=== PATIENT | female | born 1980 | race Caucasian/White ===

== ENCOUNTER 2016-09-30 00:29 | Inpatient (IN) | payer BC ==
[2016-09-30] MEDS ORDERED: Sodium Chloride 0.9% 10 ML Syringe FLUSH PRN (00:57)
[2016-09-30] MEDS ORDERED: Lidocaine 1% 50 ML MDV INJECT ONE (00:57)
[2016-09-30] MEDS ORDERED: Lactated Ringers 1,000 ML IV SCH (01:00)
[2016-09-30] MEDS ORDERED: Oxytocin/Lactated Ringers 10 UNIT/1,000 ML BAG IV SCH (01:00)
[2016-09-30] MEDS ORDERED: Citric Acid/Sodium Citrate Solution 30 ML Cup ONE (02:10)
[2016-09-30] MEDS ORDERED: Metoclopramide 10 MG/2 ML SDV ONE (02:10)
[2016-09-30] MEDS ORDERED: Bupivacaine 0.5% 30 ML SDV ONE (02:12)
[2016-09-30] MEDS ORDERED: Morphine PF 10 MG/10 ML SDV ONE (02:25)
[2016-09-30] MEDS ORDERED: Propofol 200 MG/20 ML SDV ONE (02:31)
[2016-09-30] MEDS ORDERED: Dexamethasone 4 MG/ML SDV ONE (02:32)
[2016-09-30] MEDS ORDERED: Ondansetron 4 MG/2 ML SDV ONE (02:32)
[2016-09-30] MEDS ORDERED: Succinylcholine/Normal Saline 100 MG/5 ML Syringe ONE (02:32)
[2016-09-30] MEDS ORDERED: Lidocaine 1% 2 ML ONE (02:32)
[2016-09-30] MEDS ORDERED: fentaNYL 250 MCG/5 ML SDV ONE (02:32)
[2016-09-30] MEDS ORDERED: Citric Acid/Sodium Citrate Solution 30 ML Cup PO ONE (02:38)
[2016-09-30] MEDS ORDERED: Metoclopramide 10 MG/2 ML SDV IVPUSH ONE (02:38)
[2016-09-30] MEDS ORDERED: ceFAZolin 2 GM in Premix Bag 1 BAG IV ONE (02:38)
[2016-09-30] MEDS ORDERED: Midazolam 1 MG/ML 2 ML SDV ONE (02:50)
[2016-09-30] MEDS ORDERED: ceFAZolin 1 GM Vial ONE (03:13)
[2016-09-30] MEDS ORDERED: Phenylephrine/Normal Saline 100 MCG/ML 10 ML Syringe ONE (03:13)
--- NOTE | 2016-09-30 03:35 | PCM.POSTAN ---
POST ANESTHESIA ASSESSMENT - MENTAL STATUS Mental Status: alert, oriented - VITAL SIGNS Pulse Rate: 92 SaO2: 95 Resp Rate: 10 Blood Pressure: 109/69 Temperature: 36.1 C - RESPIRATORY Respiratory Status: respiratory rate WNL, airway patent, O2 saturation stable - CARDIOVASCULAR CV Status: pulse rate WNL, blood pressure stable - GASTROINTESTINAL GI Status: no symptoms - PAIN Pain Score: 0 - POST OP HYDRATION Hydration Status: adequate & stable
[2016-09-30] MEDS ORDERED: diphenhydrAMINE 50 MG/ML SDV IVPUSH PRN ×2 (03:36→04:17)
[2016-09-30] MEDS ORDERED: Meperidine PF 50 MG/ML Syringe IVPUSH PRN (03:36)
[2016-09-30] MEDS ORDERED: fentaNYL 100 MCG/2 ML SDV IVPUSH PRN (03:36)
[2016-09-30] MEDS ORDERED: Ondansetron 4 MG/2 ML SDV IVPUSH PRN (03:36)
--- NOTE | 2016-09-30 03:38 | PCM.PREANE ---
Preanesthetic Assessment - Procedure Proposed Procedure: Stat CSection - Anesthesia/Transfusion/Family Hx Anesthesia History: Prior Anesthesia Without Reaction Type of Anesthesia Reaction: Unknown Family History of Anesthesia Reaction: No Transfusion History: Unknown Type of Transfusion Reactions: Reports: Unknown Intubation History: Unknown - Review of Systems General: No Symptoms Pulmonary: No Symptoms Cardiovascular: No Symptoms Gastrointestinal: No symptoms Neurological: No Symptoms Other: Reports: None - Physical Assessment NPO Status Date: 09/29/16 NPO Status Time: 17:00 Pulse: 92 O2 Sat by Pulse Oximetry: 95 Respiratory Rate: 10 Blood Pressure: 109/69 Temperature: 36.1 C Vital Signs: Last Vital Signs Temp 36.1 C 09/30/16 03:35 Pulse 92 09/30/16 03:35 Resp 10 L 09/30/16 03:35 BP 109/69 09/30/16 03:35 Pulse Ox 95 09/30/16 03:35 Height: 1.65 m Weight: 82.282 kg ASA Class: 2E Mental Status: Alert & Oriented x3 Airway Class: Mallampati = 1 Dentition: Reports: Normal Dentition Thyro-Mental Finger Breadths: 3 Mouth Opening Finger Breadths: 3 ROM/Head Extension: Full Lungs: Clear to auscultation, Normal respiratory effort Cardiovascular: Regular Rate, Regular Rhythm - Lab Values: Laboratory Last Values WBC 10.13 K/mm3 (3.98-10.04) H 09/30/16 00:47 RBC 3.91 M/mm3 (3.98-5.22) L 09/30/16 00:47 Hgb 12.0 gm/L (11.2-15.7) 09/30/16 00:47 Hct 35.7 % (34.1-44.9) 09/30/16 00:47 MCV 91.3 fl (79.4-94.8) 09/30/16 00:47 MCH 30.7 pg (25.6-32.2) 09/30/16 00:47 MCHC 33.6 g/dl (32.2-35.5) 09/30/16 00:47 RDW Std Deviation 44.0 fL (36.4-46.3) 09/30/16 00:47 Plt Count 230 K/mm3 (182-369) 09/30/16 00:47 MPV 11.6 fl (9.4-12.3) 09/30/16 00:47 Blood Type O POSITIVE 09/30/16 00:43 Gel Antibody Screen Negative 09/30/16 00:43 - Allergies Allergies/Adverse Reactions: Allergies Allergy/AdvReac Type Severity Reaction Status Date / Time No Known Allergies Allergy Verified 09/30/16 01:00 - Blood Blood Available: No Product(s) Available: None - Acknowledgements Anesthesia Type Planned: General Anesthesia Pt an Appropriate Candidate for the Planned Anesthesia: Yes Alternatives and Risks of Anesthesia Discussed w Pt/Guardian: Yes Pt/Guardian Understands and Agrees with Anesthesia Plan: Yes PreAnesthesia Questionnaire - Past Health History Medical/Surgical History: Denies Medical/Surgical History - SUBSTANCE USE Smoking Status *Q: Never Smoker Second Hand Smoke Exposure: No Days Per Week of Alcohol Use: 0 Recreational Drug Use History: No - HOME MEDS Home Medications: Home Meds Vits #90/Iron Fum/FA [ Formula] 1 each PO DAILY 09/19/14 [ History] - CURRENT (IN HOUSE) MEDS Current Meds: Current Medications Lactated Ringer's (Ringers, Lactated) 1,000 mls @ 100 mls/hr IV ASDIRECTED [facility] Last Admin: 09/30/16 01:16 Dose: 100 mls/hr Oxytocin/Lactated Ringer's (Pitocin In Lr 10 Units/1,000 Ml) 10 unit in 1,000 mls @ 500 mls/hr IV ASDIRECTED [facility] Sodium Chloride (Saline Flush) 10 ml FLUSH ASDIRECTED PRN PRN Reason: Keep Vein Open Discontinued Medications Bupivacaine HCl (Marcaine 0.5%) Confirm Administered Dose 30 ml .ROUTE .STK-MED ONE Stop: 09/30/16 02:13 Cefazolin Sodium (Ancef) Confirm Administered Dose 2 gm .ROUTE .STK-MED ONE Stop: 09/30/16 03:14 Citric Acid/Sodium Citrate (Bicitra Solution) Confirm Administered Dose 30 ml .ROUTE .STK-MED ONE Stop: 09/30/16 02:11 Last Admin: 09/30/16 02:47 Dose: Not Given Citric Acid/Sodium Citrate (Bicitra Solution) 30 ml PO ONETIME ONE Stop: 09/30/16 02:39 Last Admin: 09/30/16 02:15 Dose: 30 ml Dexamethasone (Dexamethasone) Confirm Administered Dose 4 mg .ROUTE .STK-MED ONE Stop: 09/30/16 02:33 Fentanyl (Sublimaze) Confirm Administered Dose 250 mcg .ROUTE .STK-MED ONE Stop: 09/30/16 02:33 Lidocaine HCl (Xylocaine-Mpf 1%) Confirm Administered Dose 2 mls @ as directed .ROUTE .STK-MED ONE Stop: 09/30/16 02:33 Cefazolin Sodium/Dextrose 2 gm (/ Premix) 50 mls @ 100 mls/hr IV ONETIME ONE Stop: 09/30/16 03:07 Lidocaine HCl (Xylocaine 1%) 50 ml INJECT ASDIRECTED ONE Stop: 09/30/16 00:58 Last Admin: 09/30/16 02:47 Dose: Not Given Metoclopramide HCl (Reglan) Confirm Administered Dose 10 mg .ROUTE .STK-MED ONE Stop: 09/30/16 02:11 Last Admin: 09/30/16 02:48 Dose: Not Given Metoclopramide HCl (Reglan) 10 mg IVPUSH ONETIME ONE Stop: 09/30/16 02:39 Last Admin: 09/30/16 02:15 Dose: 10 mg Midazolam HCl (Versed 1 Mg/Ml) Confirm Administered Dose 2 mg .ROUTE .STK-MED ONE Stop: 09/30/16 02:51 Morphine Sulfate (Duramorph Pf) Confirm Administered Dose 10 mg .ROUTE .STK-MED ONE Stop: 09/30/16 02:26 Ondansetron HCl (Zofran) Confirm Administered Dose 4 mg .ROUTE .STK-MED ONE Stop: 09/30/16 02:33 Phenylephrine HCl (Phenylephrine In Ns 100 Mcg/Ml) Confirm Administered Dose 1 mg .ROUTE .STK-MED ONE Stop: 09/30/16 03:14 Propofol (Diprivan 20 Ml) Confirm Administered Dose 200 mg .ROUTE .STK-MED ONE Stop: 09/30/16 02:32 Succinylcholine Chloride (Succinylcholine In Ns Pf) Confirm Administered Dose 100 mg .ROUTE .STK-MED ONE Stop: 09/30/16 02:33
[2016-09-30] MEDS ORDERED: HYDROmorphone 0.5 MG/0.5 ML Syringe ONE (03:41)
[2016-09-30] MEDS: HYDROmorphone 0.5 MG/0.5 ML Syringe IVPUSH PRN ×2 (03:48→04:13)
--- NOTE | 2016-09-30 03:57 | PCM.LDHP ---
L&D History of Present Illness - General Date of Service: 09/30/16 Admit Problem/Dx: Patient Status Order with Admit Dx/Problem 09/30/16 00:45 Admission Status [Patient Status] [ADT] Routine Admission Diagnosis/Problem Admission Diagnosis/Problem Source of Information: Patient, Provider History Limitations: Reports: Other (labor pain) - History of Present Illness Introduction:: Called for consult for persistent heart rate of 100 or less in a 36 year old female at 39w1d with care with Dr. Gee. See her H& P for further details. Admitted at 1240 for active labor at 7 cm. Began pushing at 1:24. Pushed in multiple positions. No other complications this . Pain Score: 9 - Related Data Allergies/Adverse Reactions: Allergies Allergy/AdvReac Type Severity Reaction Status Date / Time No Known Allergies Allergy Verified 09/30/16 01:00 Home Medications: Home Meds Vits #90/Iron Fum/FA [ Formula] 1 each PO DAILY 09/19/14 [ History] Past Medical History - Past Health History Medical/Surgical History: Denies Medical/Surgical History - Past Surgical History HEENT Surgical History: Reports: Other (see below) (wisdom teeth) Social & Family History - Tobacco Use Smoking Status *Q: Never Smoker Second Hand Smoke Exposure: No - Alcohol Use Days Per Week of Alcohol Use: 0 - Recreational Drug Use Recreational Drug Use: No - Living Situation & Occupation Living situation: Reports: Occupation: employed H&P Review of Systems - Review of Systems: Review Of Systems: See Below General: Reports: no symptoms HEENT: Reports: no symptoms Pulmonary: Reports: No Symptoms Cardiovascular: Reports: no symptoms Gastrointestinal: Reports: Other (contractions and back pain) Musculoskeletal: Reports: no symptoms Skin: Reports: no symptoms Psychiatric: Reports: no symptoms Neurological: Reports: No Symptoms Hematologic/Lymphatic: Reports: no symptoms Immunologic: Reports: no symptoms L&D Exam - Exam Exam: See Below - Vital Signs Vital Signs: Last Vital Signs Temp 36.1 C 09/30/16 03:38 Pulse 92 09/30/16 03:38 Resp 10 L 09/30/16 03:38 BP 109/69 09/30/16 03:38 Pulse Ox 95 09/30/16 03:38 Weight: 82.282 kg - OB Specific Contraction Intensity: Moderate to Strong movement: not appreciated heart tones: present heart tones per min: 100 (some decelerations to 70s) Heart Rate (FHR) Variability: Moderate (6-25 bmp) Presentation: Right Occiput Posterior (ROP) - Wilburn Score Wilburn Score Effacement: >80% Wilburn Score Dilation: > 5 cm Wilburn Score Infant's Station: -3 - Exam General: alert HEENT: Conjunctiva clear Neck: supple Lungs: Normal respiratory effort Cardiovascular: regular rhythm Abdomen: soft, other (gravid) Skin: warm, dry, intact - Patient Data Lab Results last 24 hrs: Laboratory Results - last 24 hr 09/30/16 09/30/16 Range/Units 00:43 00:47 WBC 10.13 H (3.98-10.04) K/mm3 RBC 3.91 L (3.98-5.22) M/mm3 Hgb 12.0 (11.2-15.7) gm/L Hct 35.7 (34.1-44.9) % MCV 91.3 (79.4-94.8) fl MCH 30.7 (25.6-32.2) pg MCHC 33.6 (32.2-35.5) g/dl RDW Std Deviation 44.0 (36.4-46.3) fL Plt Count 230 (182-369) K/mm3 MPV 11.6 (9.4-12.3) fl Blood Type O POSITIVE Gel Antibody Screen Negative Result Diagrams: 09/30/16 00:47 Problem List Initiated/Reviewed/Updated: Yes Orders Last 24hrs: Active Orders 24 hr Category Date Time Status Admission Status [Patient Status] [ADT] Routine ADT 09/30/16 00:45 Active Patient Status Manage Transfer [TRANSFER] Routine ADT 09/30/16 03:42 Ordered Activity as Tolerated [RC] PFP Care 09/30/16 00:57 Active Communication Order [RC] ASDIRECTED Care 09/30/16 00:57 Active Communication Order [RC] ROUTINE Care 09/30/16 03:35 Active Cooling Warming Measures [RC] ASDIRECTED Care 09/30/16 03:35 Active Heart Tones [RC] ASDIRECTED Care 09/30/16 00:57 Active Notify Provider [RC] ASDIRECTED Care 09/30/16 03:35 Active Notify Provider [RC] PFP Care 09/30/16 00:57 Active Notify Provider [RC] PRN Care 09/30/16 00:57 Active Oxygen Therapy [RC] ASDIRECTED Care 09/30/16 03:35 Active Peripheral IV Care [RC] . DIRECTED Care 09/30/16 00:57 Active Procedure Site Prep Instruct [RC] ASDIRECTED Care 09/30/16 02:38 Active Pulse Oximetry [RC] ASDIRECTED Care 09/30/16 03:35 Active Verify Patient Consent Obtain [RC] PER UNIT ROUTINE Care 09/30/16 02:38 Active Vital Signs [RC] PER UNIT ROUTINE Care 09/30/16 00:57 Active Vital Signs [RC] Q15M Care 09/30/16 03:35 Active PATIENT RETYPE [BBK] Stat Lab 09/30/16 00:43 Results TYPE AND SCREEN [BBK] Stat Lab 09/30/16 00:43 Results HYDROmorphone [Dilaudid] Med 09/30/16 03:36 Active 0.5 mg IVPUSH Q15M PRN Lactated Ringers [Ringers, Lactated] 1,000 ml Med 09/30/16 01:00 Active IV ASDIRECTED Meperidine [Demerol] Med 09/30/16 03:36 Ordered 12.5 mg IVPUSH ONETIME PRN Ondansetron [Zofran] Med 09/30/16 03:36 Ordered 4 mg IVPUSH ONETIME PRN Oxytocin/Lactated Ringers [Pitocin in LR 10 Units/1,000 Med 09/30/16 01:00 Active ML] 10 unit in 1,000 ml IV ASDIRECTED Sodium Chloride 0.9% [Saline Flush] Med 09/30/16 00:57 Active 10 ml FLUSH ASDIRECTED PRN diphenhydrAMINE [Benadryl] Med 09/30/16 03:36 Ordered 25 mg IVPUSH Q6H PRN fentaNYL [Sublimaze] Med 09/30/16 03:36 Ordered 50 mcg IVPUSH Q5M PRN Electronic Heart Tones Ext w TOCO [WOMSER] Oth 09/30/16 00:57 Ordered Routine Electronic Heart Tones Internal [WOMSER] Per Unit Oth 09/30/16 00:57 Ordered Routine Peripheral IV Insertion Adult [OM.PC] Routine Oth 09/30/16 00:57 Ordered Schedule Procedure [COMM] Per Unit Routine Oth 09/30/16 02:38 Ordered Resuscitation Status Routine Resus Stat 09/30/16 00:57 Ordered Medication Orders Diphenhydramine HCl (Benadryl) 25 mg IVPUSH Q6H PRN PRN Reason: Pruritis Fentanyl (Sublimaze) 50 mcg IVPUSH Q5M PRN PRN Reason: Pain Stop: 09/30/16 03:52 Hydromorphone HCl (Dilaudid) 0.5 mg IVPUSH Q15M PRN PRN Reason: Pain (severe 7-10) Stop: 09/30/16 03:52 Lactated Ringer's (Ringers, Lactated) 1,000 mls @ 100 mls/hr IV ASDIRECTED [facility] Last Admin: 09/30/16 01:16 Dose: 100 mls/hr Oxytocin/Lactated Ringer's (Pitocin In Lr 10 Units/1,000 Ml) 10 unit in 1,000 mls @ 500 mls/hr IV ASDIRECTED [facility] Meperidine HCl (Demerol) 12.5 mg IVPUSH ONETIME PRN PRN Reason: Shivering Ondansetron HCl (Zofran) 4 mg IVPUSH ONETIME PRN PRN Reason: Nausea/Vomiting Sodium Chloride (Saline Flush) 10 ml FLUSH ASDIRECTED PRN PRN Reason: Keep Vein Open Assessment/Plan Comment:: 36 year old female. Called for assessment for section. bradycardia with baseline 110 essentially since admission and now has been pushing since 124 with baseline around 90 and decelerations to 70s-80s. -Will proceed with primary section. This H&P done post delivery as occurred in stat fashion.
[2016-09-30] MEDS ORDERED: Lactated Ringers 1,000 ML ONE ×2 (04:13→04:50)
[2016-09-30] MEDS ORDERED: Morphine 4 MG/ML Syringe IVPUSH PRN (04:17)
[2016-09-30] MEDS ORDERED: Naloxone 0.4 MG/ML SDV IVPUSH PRN (04:17)
[2016-09-30] MEDS ORDERED: Dextrose 5%-Lactated Ringers 1,000 ML IV SCH (04:17)
[2016-09-30] MEDS ORDERED: Dextrose 5%-0.45% NaCl 1,000 ML IV SCH (04:17)
[2016-09-30] MEDS ORDERED: Lanolin 100% Cream 7 GM Tube TOP PRN (04:17)
[2016-09-30] MEDS ORDERED: ePHEDrine 50 MG/ML SDV IVPUSH PRN (04:17)
--- NOTE | 2016-09-30 04:18 | PCM.OPNOTE ---
- General Post-Op/Procedure Note Date of Surgery/Procedure: 09/30/16 Operative Procedure(s): primary section Findings: OP, viable male, 8/9 apgars, normal uterus tubes and ovaries, weight 8#5oz Pre Op Diagnosis: non-reassuring status Post-Op Diagnosis: Same Anesthesia Technique: General ET tube Primary Surgeon: Cathy Murrell Anesthesia Provider: Jovany De La Cruz Pvc Monitor: Ruth Vizcarra Output, Urine Amount: 100 (blood tinged) EBL in mLs: 1,800 Complications: None Condition: Good Free Text/Narrative:: Intake & Output 09/29/16 09/29/16 09/30/16 14:59 22:59 06:59 Output Total 150 Balance -150 The patient was taken to the operating room. Doppler heart tones were 60. The patient was prepped with betadine and draped in the usual sterile fashion in the dorsal supine position with a leftward tilt. After general anesthesia was initiated a Pfannenstiel skin incision was made with the scalpel and carried through to the underlying layer of fascia. The fascia was incised with the scalpel. The fascia, peritoneum and rectus were further divided bluntly.. The bladder blade was inserted. The lower uterine segment was incised in a transverse fashion using the scalpel and extended using bandage scissors as well as manual traction. Clear fluid was noted. The infant was subsequently delivered by flexing the head to the incision. Body and shoulders followed without difficulty. The cord was clamped and cut. The infant was subsequently handed to the awaiting agile scrum master whose presence had been requested.. The placenta was delivered spontaneously intact with a three-vessel cord noted. The uterus was exteriorized and cleared of all clots and debris. The uterine incision was repaired in 2 layers using 0 monocryl. Hemostasis was visualized. The left aspect of the incison had a small cervical extension which was somewhat difficult to obtain hemostasis for initially resulting in more than average blood loss. Eventually, hemostasis was visualized bilaterally. The uterus was returned to the abdomen. The uterine incision was reexamined and it was noted to be hemostatic. The pelvis was copiously irrigated. The fascia was closed with 1 PDS suture, and the skin was closed with 3-0 monocryl. Sponge, lap, and instrument counts were correct x2. The patient was stable at the completion of the procedure and was subsequently transferred to the recovery room in stable condition.
[2016-09-30] MEDS ORDERED: Measles, Mumps & Rubella Vaccine 0.5 ML SDV SUBCUT ONE (04:28)
[2016-09-30] MEDS ORDERED: Lactated Ringers 1,000 ML IV ONE (04:54)
[2016-09-30] MEDS ORDERED: Ketorolac 30 MG/ML SDV ONE (04:55)
[2016-09-30] MEDS: Ketorolac 30 MG/ML SDV IVPUSH SCH ×3 (05:00→16:26)
[2016-09-30] MEDS: Simethicone 80 MG Tab.Chew PO SCH ×5 (05:02→22:55)
[2016-09-30] MEDS: Acetaminophen/oxyCODONE 325-5 MG Tab PO PRN ×2 (05:02→20:18)
--- NOTE | 2016-09-30 08:29 | PCM48HPAN ---
Post Anesthesia Note - EVALUATION WITHIN 48HRS OF ANESTHETIC Vital Signs in Normal Range: Yes Patient Participated in Evaluation: Yes Respiratory Function Stable: Yes Airway Patent: Yes Cardiovascular Function Stable: Yes Hydration Status Stable: Yes Pain Control Satisfactory: Yes Nausea and Vomiting Control Satisfactory: Yes Mental Status Recovered: Yes
--- NOTE | 2016-09-30 08:39 | PCM.LDHP ---
L&D History of Present Illness - General Date of Service: 09/30/16 Admit Problem/Dx: Patient Status Order with Admit Dx/Problem 09/30/16 00:45 Admission Status [Patient Status] [ADT] Routine Admission Diagnosis/Problem Admission Diagnosis/Problem 09/30/16 08:35 late entry for admission at approximately 0030 on 09/30/2016 Called for spontaneous labor of 36 yo at 39 weeks presenting to labor and delivery with contractions every 5 minutes. On presentation FHR 120 with mod variability and SVE 7 cm/-2station. Mom notes normal movement No vaginal bleeding. routine care with myself, no complications GBS neg O pos STD neg previous vaginal deliveries without complication. - History of Present Illness Location, : Reports: Abdomen Quality: Reports: Ache Severity: severe Pain Score: 6 Improves with: Reports: None Worsens with: Reports: None Associated Symptoms: Denies: vaginal bleeding, vaginal fluid - Related Data Allergies/Adverse Reactions: Allergies Allergy/AdvReac Type Severity Reaction Status Date / Time No Known Allergies Allergy Verified 09/30/16 01:00 Home Medications: Home Meds Vits #90/Iron Fum/FA [ Formula] 1 each PO DAILY 09/19/14 [ History] Iron 09/30/16 [History] Past Medical History - Past Health History Medical/Surgical History: Denies Medical/Surgical History Cardiovascular History: Reports: Heart murmur SKIVER SOCK LININGS History: Reports: , Spontaneous Hematologic History: Reports: Anemia - Past Surgical History HEENT Surgical History: Reports: Other (see below) (wisdom teeth) Social & Family History - Tobacco Use Smoking Status *Q: Never Smoker Second Hand Smoke Exposure: No - Caffeine Use Caffeine Use: Reports: Coffee Other Caffeine Use: cup a day - Alcohol Use Days Per Week of Alcohol Use: 0 - Recreational Drug Use Recreational Drug Use: No - Living Situation & Occupation Living situation: Reports: Occupation: employed H&P Review of Systems - Review of Systems: Review Of Systems: See Below General: Reports: no symptoms HEENT: Reports: no symptoms Pulmonary: Reports: No Symptoms Cardiovascular: Reports: no symptoms Gastrointestinal: Reports: No symptoms, Abdominal pain Genitourinary: Reports: no symptoms Musculoskeletal: Reports: no symptoms Skin: Reports: no symptoms Psychiatric: Reports: no symptoms Neurological: Reports: No Symptoms Hematologic/Lymphatic: Reports: no symptoms Immunologic: Reports: no symptoms L&D Exam - Exam Exam: See Below - Vital Signs Vital Signs: Last Vital Signs Temp 36.9 C 09/30/16 07:15 Pulse 82 09/30/16 07:12 Resp 17 09/30/16 07:12 BP 119/83 09/30/16 07:12 Pulse Ox 96 09/30/16 07:12 Weight: 82.282 kg - OB Specific Contraction Intensity: Moderate to Strong movement: not appreciated heart tones: present heart tones per min: 100 (some decelerations to 70s) Heart Rate (FHR) Variability: Moderate (6-25 bmp) Presentation: Right Occiput Posterior (ROP) - Wilburn Score Wilburn Score Effacement: >80% Wilburn Score Dilation: > 5 cm Wilburn Score Infant's Station: -3 - Exam General: alert, oriented Cardiovascular: regular rate, regular rhythm Rectal Exam: Hemorrhoids Genitourinary: Normal external exam Extremities: normal inspection Skin: warm, dry, intact - Patient Data Lab Results last 24 hrs: Laboratory Results - last 24 hr 09/30/16 09/30/16 09/30/16 Range/Units 00:43 00:47 06:48 WBC 10.13 H 13.84 H (3.98-10.04) K/mm3 RBC 3.91 L 2.95 L (3.98-5.22) M/mm3 Hgb 12.0 9.0 L (11.2-15.7) gm/L Hct 35.7 27.4 L (34.1-44.9) % MCV 91.3 92.9 (79.4-94.8) fl MCH 30.7 30.5 (25.6-32.2) pg MCHC 33.6 32.8 (32.2-35.5) g/dl RDW Std Deviation 44.0 43.3 (36.4-46.3) fL Plt Count 230 175 L (182-369) K/mm3 MPV 11.6 11.1 (9.4-12.3) fl Neut % (Auto) 90.6 H (34.0-71.1) % Lymph % (Auto) 2.6 L (19.3-51.7) % Butts % (Auto) 6.5 (4.7-12.5) % Eos % (Auto) 0 L (0.7-5.8) Baso % (Auto) 0.0 L (0.1-1.2) % Neut # (Auto) 12.54 H (1.56-6.13) K/mm3 Lymph # (Auto) 0.36 L (1.18-3.74) K/mm3 Butts # (Auto) 0.90 H (0.24-0.36) K/mm3 Eos # (Auto) 0.00 L (0.04-0.36) K/mm3 Baso # (Auto) 0.00 L (0.01-0.08) K/mm3 Manual Slide Review Abnormal smear Blood Type O POSITIVE Gel Antibody Screen Negative Result Diagrams: 09/30/16 06:48 - Problem List (1) Normal labor SNOMED Code(s): 01587777 ICD Code: O80 - ENCOUNTER FOR FULL-TERM UNCOMPLICATED DELIVERY; Z37.9 - OUTCOME OF DELIVERY, UNSPECIFIED Status: Acute Current Visit: No (2) Vaginal delivery SNOMED Code(s): 275103776 ICD Code: O80 - ENCOUNTER FOR FULL-TERM UNCOMPLICATED DELIVERY Status: Acute Current Visit: No Problem List Initiated/Reviewed/Updated: Yes Orders Last 24hrs: Active Orders 24 hr Category Date Time Status Communication Order [RC] PER UNIT ROUTINE Care 09/30/16 04:17 Active Communication Order [RC] PER UNIT ROUTINE Care 09/30/16 04:17 Active Communication Order [RC] PER UNIT ROUTINE Care 09/30/16 04:17 Active Communication Order [RC] ROUTINE Care 09/30/16 03:35 Active Cooling Warming Measures [RC] ASDIRECTED Care 09/30/16 03:35 Active Heart Tones [RC] ASDIRECTED Care 09/30/16 00:57 Inactive Notify Provider Consults [RC] ASDIRECTED Care 09/30/16 08:23 Active Notify Provider Intake and Out [RC] ASDIRECTED Care 09/30/16 04:17 Active Notify Provider [RC] ASDIRECTED Care 09/30/16 03:35 Active Oxygen Therapy [RC] ASDIRECTED Care 09/30/16 03:35 Active Pulse Oximetry [RC] ASDIRECTED Care 09/30/16 03:35 Active Urinary Catheter Removal [RC] Per Unit Routine Care 10/01/16 03:43 Active Vaccines to be Administered [RC] PER UNIT ROUTINE Care 09/30/16 04:28 Active Vital Signs [RC] PER UNIT ROUTINE Care 09/30/16 00:57 Inactive Vital Signs [RC] PER UNIT ROUTINE Care 09/30/16 04:17 Active Consult to Physician [CONS] Stat Cons 09/30/16 02:30 Active Regular Diet [DIET] Diet 09/30/16 Breakfast Active Acetaminophen/oxyCODONE [Percocet 325-5 MG] Med 09/30/16 04:17 Active 2 tab PO Q6H PRN Dextrose 5%-0.45% NaCl [Dextrose 5%-1/2 NS] 1,000 ml Med 09/30/16 04:17 Active IV ASDIRECTED Dextrose 5%-Lactated Ringers 1,000 ml Med 09/30/16 04:17 Active IV ASDIRECTED Docusate Sodium [Colace] Med 09/30/16 04:17 Active 100 mg PO Q12H PRN Ibuprofen [Motrin] Med 09/30/16 23:00 Active 600 mg PO Q6H PRN Ketorolac [Toradol] Med 09/30/16 05:00 Active 30 mg IVPUSH Q6H Lanolin [Lansinoh HPA] Med 09/30/16 04:17 Active See Dose Instructions TOP ASDIRECTED PRN Meperidine [Demerol] Med 09/30/16 03:36 Active 12.5 mg IVPUSH ONETIME PRN Morphine Med 09/30/16 04:17 Active 4 mg IVPUSH Q2H PRN Naloxone [Narcan] Med 09/30/16 04:17 Active 0.1 mg IVPUSH SEECOMMENT PRN Ondansetron [Zofran] Med 09/30/16 03:36 Active 4 mg IVPUSH ONETIME PRN Simethicone Med 09/30/16 04:17 Active 80 mg PO PCBED diphenhydrAMINE [Benadryl] Med 09/30/16 04:17 Active 25 mg IVPUSH Q6H PRN ePHEDrine [ePHEDrine Sulfate] Med 09/30/16 04:17 Active 5 mg IVPUSH SEECOMMENT PRN Assess Lochia [WOMSER] Per Unit Routine Oth 09/30/16 04:17 Ordered Assess Uterine Involution [WOMSER] Per Unit Routine Oth 09/30/16 04:17 Ordered Medication Administration Instruction [OM.PC] Routine Oth 09/30/16 04:17 Ordered Resuscitation Status Routine Resus Stat 09/30/16 00:57 Ordered Medication Orders Diphenhydramine HCl (Benadryl) 25 mg IVPUSH Q6H PRN PRN Reason: Itching or Nausea Docusate Sodium (Colace) 100 mg PO Q12H PRN PRN Reason: Constipation Emollient Ointment (Lansinoh Hpa) 0 gm TOP ASDIRECTED PRN PRN Reason: Sore Nipples Ephedrine Sulfate (Ephedrine Sulfate) 5 mg IVPUSH SEECOMMENT PRN PRN Reason: Other Dextrose/Sodium Chloride (Dextrose 5%-1/2 Ns) 1,000 mls @ 125 mls/hr IV ASDIRECTED [facility] Dextrose/Lactated Ringer's (Dextrose 5%-Lactated Ringers) 1,000 mls @ 125 mls/ hr IV ASDIRECTED [facility] Stop: 09/30/16 12:16 Last Admin: 09/30/16 06:25 Dose: 125 mls/hr Ibuprofen (Motrin) 600 mg PO Q6H PRN PRN Reason: mild pain or fever Ketorolac Tromethamine (Toradol) 30 mg IVPUSH Q6H [facility] Stop: 09/30/16 17:01 Last Admin: 09/30/16 05:00 Dose: 30 mg Meperidine HCl (Demerol) 12.5 mg IVPUSH ONETIME PRN PRN Reason: Shivering Morphine Sulfate (Morphine) 4 mg IVPUSH Q2H PRN PRN Reason: Pain Naloxone HCl (Narcan) 0.1 mg IVPUSH SEECOMMENT PRN PRN Reason: Respiratory Depression Ondansetron HCl (Zofran) 4 mg IVPUSH ONETIME PRN PRN Reason: Nausea/Vomiting Oxycodone/Acetaminophen (Percocet 325-5 Mg) 2 tab PO Q6H PRN PRN Reason: Pain (moderate 4-6) Last Admin: 09/30/16 05:02 Dose: 2 tab Simethicone (Simethicone) 80 mg PO [facility] Last Admin: 09/30/16 05:02 Dose: 80 mg Assessment/Plan Comment:: 36 yo female in spontaneous labor Plan for vaginal delivery. 36 year old female. Called for assessment for section. bradycardia with baseline 110 essentially since admission and now has been pushing since 124 with baseline around 90 and decelerations to 70s-80s. -Will proceed with primary section. This H&P done post delivery as occurred in stat fashion.
[2016-09-30] MEDS: Docusate Sodium 100 MG Cap PO PRN (10:46)
[2016-09-30] MEDS: Ibuprofen 600 MG Tab PO PRN (22:55)
[2016-10-01] MEDS: Acetaminophen/oxyCODONE 325-5 MG Tab PO PRN ×3 (04:40→22:31)
[2016-10-01] MEDS: Simethicone 80 MG Tab.Chew PO SCH ×4 (11:56→22:29)
[2016-10-01] MEDS: Ibuprofen 600 MG Tab PO PRN (20:09)
[2016-10-01] MEDS: Docusate Sodium 100 MG Cap PO PRN (22:29)
[2016-10-02] MEDS: Ibuprofen 600 MG Tab PO PRN (02:03)
[2016-10-02 03:44] VITALS: BP 122/75
[2016-10-02] MEDS: Acetaminophen/oxyCODONE 325-5 MG Tab PO PRN (07:43)
--- NOTE | 2016-10-02 10:24 | PCM.DCSUM1 ---
Discharge Summary - Discharge Data Discharge Date: 10/02/16 Discharge Disposition: Home, Self-Care 01 Condition: Good - Patient Summary/Data Operative Procedure(s) Performed: primary section Consults: Consultations 09/30/16 02:30 Consult to Physician [CONS] Stat - Patient Instructions Diet: Usual Diet as Tolerated Activity: No Strenuous Activities Driving: Do Not Drive Wound/Incision Care: Keep Operative Site/Wound Site Clean and Dry Notify Provider of: Fever, Increased Pain, Swelling and Redness, Drainage, Nausea and/or Vomiting - Discharge Plan Home Medications: Home Meds Vits #90/Iron Fum/FA [ Formula] 1 each PO DAILY 09/19/14 [ History] Iron 09/30/16 [History] Referrals: Cathy Murrell MD [Physician] - (4 week in [place]) - Discharge Summary/Plan Comment DC Time >30 min.: Yes - General Info Date of Service: 10/02/16 Functional Status: Reports: pain controlled - Review of Systems General: Reports: No Symptoms HEENT: Reports: no symptoms Pulmonary: Reports: no symptoms Cardiovascular: Reports: No Symptoms Gastrointestinal: Reports: No symptoms Genitourinary: Reports: no symptoms Musculoskeletal: Reports: no symptoms Skin: Reports: no symptoms Neurological: Reports: No Symptoms Psychiatric: Reports: no symptoms - Patient Data Vitals - Most Recent: Last Vital Signs Temp 36.1 C 10/02/16 02:36 Pulse 88 10/02/16 02:36 Resp 16 10/02/16 02:36 BP 122/75 10/02/16 02:36 Pulse Ox 95 10/02/16 02:36 Weight - Most Recent: 82.282 kg I&O - Last 24 hours: Intake & Output 10/01/16 10/02/16 10/02/16 22:59 06:59 14:59 Intake Total 240 Balance 240 Med Orders - Current: Current Medications Diphenhydramine HCl (Benadryl) 25 mg IVPUSH Q6H PRN PRN Reason: Itching or Nausea Docusate Sodium (Colace) 100 mg PO Q12H PRN PRN Reason: Constipation Last Admin: 10/01/16 22:29 Dose: 100 mg Emollient Ointment (Lansinoh Hpa) 0 gm TOP ASDIRECTED PRN PRN Reason: Sore Nipples Ephedrine Sulfate (Ephedrine Sulfate) 5 mg IVPUSH SEECOMMENT PRN PRN Reason: Other Dextrose/Sodium Chloride (Dextrose 5%-1/2 Ns) 1,000 mls @ 125 mls/hr IV ASDIRECTED [facility] Last Admin: 09/30/16 14:55 Dose: 125 mls/hr Ibuprofen (Motrin) 600 mg PO Q6H PRN PRN Reason: mild pain or fever Last Admin: 10/02/16 02:03 Dose: 600 mg Meperidine HCl (Demerol) 12.5 mg IVPUSH ONETIME PRN PRN Reason: Shivering Morphine Sulfate (Morphine) 4 mg IVPUSH Q2H PRN PRN Reason: Pain Naloxone HCl (Narcan) 0.1 mg IVPUSH SEECOMMENT PRN PRN Reason: Respiratory Depression Ondansetron HCl (Zofran) 4 mg IVPUSH ONETIME PRN PRN Reason: Nausea/Vomiting Oxycodone/Acetaminophen (Percocet 325-5 Mg) 2 tab PO Q6H PRN PRN Reason: Pain (moderate 4-6) Last Admin: 10/02/16 07:43 Dose: 2 tab Simethicone (Simethicone) 80 mg PO PCBED [facility] Last Admin: 10/01/16 22:29 Dose: 80 mg Discontinued Medications Bupivacaine HCl (Marcaine 0.5%) Confirm Administered Dose 30 ml .ROUTE .STK-MED ONE Stop: 09/30/16 02:13 Last Admin: 09/30/16 03:00 Dose: 20 ml Cefazolin Sodium (Ancef) Confirm Administered Dose 2 gm .ROUTE .STK-MED ONE Stop: 09/30/16 03:14 Citric Acid/Sodium Citrate (Bicitra Solution) Confirm Administered Dose 30 ml .ROUTE .STK-MED ONE Stop: 09/30/16 02:11 Last Admin: 09/30/16 02:47 Dose: Not Given Citric Acid/Sodium Citrate (Bicitra Solution) 30 ml PO ONETIME ONE Stop: 09/30/16 02:39 Last Admin: 09/30/16 02:15 Dose: 30 ml Dexamethasone (Dexamethasone) Confirm Administered Dose 4 mg .ROUTE .STK-MED ONE Stop: 09/30/16 02:33 Diphenhydramine HCl (Benadryl) 25 mg IVPUSH Q6H PRN PRN Reason: Pruritis Fentanyl (Sublimaze) Confirm Administered Dose 250 mcg .ROUTE .STK-MED ONE Stop: 09/30/16 02:33 Fentanyl (Sublimaze) 50 mcg IVPUSH Q5M PRN PRN Reason: Pain Stop: 09/30/16 03:52 Last Admin: 09/30/16 04:02 Dose: 50 mcg Hydromorphone HCl (Dilaudid) 0.5 mg IVPUSH Q15M PRN PRN Reason: Pain (severe 7-10) Stop: 09/30/16 03:52 Last Admin: 09/30/16 04:13 Dose: 0.5 mg Hydromorphone HCl (Dilaudid) Confirm Administered Dose 0.5 mg .ROUTE .STK-MED ONE Stop: 09/30/16 03:42 Last Admin: 09/30/16 04:54 Dose: Not Given Lactated Ringer's (Ringers, Lactated) 1,000 mls @ 100 mls/hr IV ASDIRECTED [facility] Last Admin: 09/30/16 01:16 Dose: 100 mls/hr Oxytocin/Lactated Ringer's (Pitocin In Lr 10 Units/1,000 Ml) 10 unit in 1,000 mls @ 500 mls/hr IV ASDIRECTED [facility] Lidocaine HCl (Xylocaine-Mpf 1%) Confirm Administered Dose 2 mls @ as directed .ROUTE .STK-MED ONE Stop: 09/30/16 02:33 Cefazolin Sodium/Dextrose 2 gm (/ Premix) 50 mls @ 100 mls/hr IV ONETIME ONE Stop: 09/30/16 03:07 Last Admin: 10/01/16 13:56 Dose: Not Given Lactated Ringer's (Ringers, Lactated) Confirm Administered Dose 1,000 mls @ as directed .ROUTE .STK-MED ONE Stop: 09/30/16 04:14 Dextrose/Lactated Ringer's (Dextrose 5%-Lactated Ringers) 1,000 mls @ 125 mls/ hr IV ASDIRECTED [facility] Stop: 09/30/16 12:16 Last Admin: 09/30/16 06:25 Dose: 125 mls/hr Lactated Ringer's (Ringers, Lactated) 1,000 mls @ 999 mls/hr IV .BOLUS ONE Stop: 09/30/16 05:54 Last Admin: 09/30/16 05:17 Dose: 999 mls/hr Lactated Ringer's (Ringers, Lactated) Confirm Administered Dose 1,000 mls @ as directed .ROUTE .STK-MED ONE Stop: 09/30/16 04:51 Last Admin: 09/30/16 05:05 Dose: Not Given Ketorolac Tromethamine (Toradol) 30 mg IVPUSH Q6H PAPI Stop: 09/30/16 17:01 Last Admin: 09/30/16 16:26 Dose: 30 mg Ketorolac Tromethamine (Toradol) Confirm Administered Dose 30 mg .ROUTE .STK- MED ONE Stop: 09/30/16 04:56 Last Admin: 09/30/16 05:05 Dose: Not Given Lidocaine HCl (Xylocaine 1%) 50 ml INJECT ASDIRECTED ONE Stop: 09/30/16 00:58 Last Admin: 09/30/16 02:47 Dose: Not Given Measles/Mumps/Rubella Vaccine Live (M-M-R Ii Vaccine) 0.5 ml SUBCUT .ONCE ONE Stop: 09/30/16 04:29 Last Admin: 10/01/16 22:29 Dose: 0.5 ml Metoclopramide HCl (Reglan) Confirm Administered Dose 10 mg .ROUTE .STK-MED ONE Stop: 09/30/16 02:11 Last Admin: 09/30/16 02:48 Dose: Not Given Metoclopramide HCl (Reglan) 10 mg IVPUSH ONETIME ONE Stop: 09/30/16 02:39 Last Admin: 09/30/16 02:15 Dose: 10 mg Midazolam HCl (Versed 1 Mg/Ml) Confirm Administered Dose 2 mg .ROUTE .STK-MED ONE Stop: 09/30/16 02:51 Morphine Sulfate (Duramorph Pf) Confirm Administered Dose 10 mg .ROUTE .STK-MED ONE Stop: 09/30/16 02:26 Ondansetron HCl (Zofran) Confirm Administered Dose 4 mg .ROUTE .STK-MED ONE Stop: 09/30/16 02:33 Phenylephrine HCl (Phenylephrine In Ns 100 Mcg/Ml) Confirm Administered Dose 1 mg .ROUTE .STK-MED ONE Stop: 09/30/16 03:14 Propofol (Diprivan 20 Ml) Confirm Administered Dose 200 mg .ROUTE [employer] ONE Stop: 09/30/16 02:32 Sodium Chloride (Saline Flush) 10 ml FLUSH ASDIRECTED PRN PRN Reason: Keep Vein Open Succinylcholine Chloride (Succinylcholine In Ns Pf) Confirm Administered Dose 100 mg .ROUTE .[employer] ONE Stop: 09/30/16 02:33 - Exam General: Reports: alert, oriented HEENT: Reports: Pupils equal, Pupils reactive, EOMI, Mucous membr. moist/pink Neck: Reports: supple Lungs: Reports: Clear to auscultation, Normal respiratory effort Cardiovascular: Reports: Regular Rate, Regular Rhythm Abdomen: Reports: bowel sounds present, soft, no tenderness, no distension (Female) Exam: Normal external exam, Normal speculum exam, Normal bimanual exam Back Exam: Reports: normal inspection, full range of motion Extremities: Reports: no edema, normal pulses Skin: Reports: warm, dry, intact Wound/Incisions: Reports: healing well Neurological: Reports: no new focal deficit Psy/Mental Status: Reports: alert, normal affect, normal mood *Q Meaningful Use (DIS) - VTE *Q VTE Criteria *Q: - Stroke *Q Stroke Criteria *Q: - AMI *Q AMI Criteria *Q:
== END 2016-10-02 10:48 | disposition home or self-care (01) | DRG 540 ==
LOC: JD.OB 00:29 → JD.OBCHECK 00:29 → JD.OB 00:46 → OBSVTOIN 02:37
PROVIDERS: ADMIT Family Medicine; ATTEND Family Medicine
PROC: 10D00Z1 Extraction of Products of Conception, Low, Open Approach (ICD-10-PCS; principal; 2016-09-30)
PROC: 3E0234Z Introduction of Serum, Toxoid and Vaccine into Muscle, Percutaneous Approach (ICD-10-PCS; 2016-09-30)
DX: O76 Abnormality in fetal heart rate and rhythm complicating labor and delivery (principal); Z3A.39 39 weeks gestation of pregnancy; Z37.0 Single live birth; Z23 Encounter for immunization
CPT/HCPCS: 01961; 36415; 85025; 85027; 86850; 86900; 86901; 90707; A9270-GY; J0330; J0690; J1100; J1170; J1885; J2250; J2270; J2405; J2704; J2765; J3010; J7042; J7120

== ENCOUNTER 2022-04-16 08:51 | Day surgery (SDC) | payer BC ==
[~2022-04-16 08:51] MED LIST: Bupivacaine 0.25% 10 ML SDV ONE; Dexamethasone 4 MG/ML 5 ML MDV ONE; Dexmedetomidine 200 MCG/2 ML SDV ONE; EPINEPHrine 1 MG/ML 30 ML MDV IRR SCH; Lactated Ringers 1,000 ML IV SCH; Lidocaine 1% 6 ML ONE; Lidocaine 1%/Sod Bicarbonate in NS 8.4% 1 ML Syringe IDERM PRN; Midazolam 1 MG/ML 2 ML SDV ONE; Ropivacaine 0.5% 5 MG/ML 30 ML SDV ONE; Sodium Chloride 0.9% 10 ML Syringe FLUSH PRN; fentaNYL 100 MCG/2 ML SDV ONE
[2022-04-16] MEDS ORDERED: fentaNYL 100 MCG/2 ML SDV ONE (10:59)
[2022-04-16] MEDS ORDERED: Lidocaine 1% 2 ML ONE (11:00)
[2022-04-16] MEDS ORDERED: ceFAZolin 2 GM Vial ONE (11:00)
[2022-04-16] MEDS ORDERED: Propofol 200 MG/20 ML SDV ONE (11:00)
[2022-04-16] MEDS ORDERED: Ondansetron 4 MG/2 ML SDV ONE ×2 (12:01)
[2022-04-16] MEDS ORDERED: fentaNYL 100 MCG/2 ML SDV IVPUSH PRN (12:07)
[2022-04-16] MEDS ORDERED: HYDROmorphone 0.5 MG/0.5 ML Syringe IVPUSH PRN (12:07)
[2022-04-16] MEDS ORDERED: Acetaminophen/HYDROcodone 325-5 MG Tab PO PRN (13:14)
[2022-04-16 16:18] VITALS: BP 105/72; PULSE 66
== END 2022-04-16 16:11 | disposition home or self-care (01) ==
LOC: JD.SDS 08:51
PROVIDERS: ATTEND Orthopaedic Surgery
DX: S83.241A Other tear of medial meniscus, current injury, right knee, initial encounter (principal); S83.511A Sprain of anterior cruciate ligament of right knee, initial encounter; D64.9 Anemia, unspecified; Z98.890 Other specified postprocedural states; Z79.899 Other long term (current) drug therapy; Z79.82 Long term (current) use of aspirin
CPT/HCPCS: 29881; 29888; 76000; 81025; C1713; C1762; J0171; J0690; J1100; J2250; J2405; J2704; J2795; J3010; J3490; J7120; 01400; 64447; 76942

== ENCOUNTER 2023-05-13 05:50 | Day surgery (SDC) | payer BC ==
[~2023-05-13 05:50] MED LIST changes: -Bupivacaine 0.25% 10 ML SDV ONE; -Dexamethasone 4 MG/ML 5 ML MDV ONE; -Dexmedetomidine 200 MCG/2 ML SDV ONE; -EPINEPHrine 1 MG/ML 30 ML MDV IRR SCH; -Lidocaine 1% 6 ML ONE; -Lidocaine 1%/Sod Bicarbonate in NS 8.4% 1 ML Syringe IDERM PRN; -Midazolam 1 MG/ML 2 ML SDV ONE; -Ropivacaine 0.5% 5 MG/ML 30 ML SDV ONE; +Sodium Chloride 0.9% 10 ML Syringe FLUSH SCH; -fentaNYL 100 MCG/2 ML SDV ONE
[2023-05-13] MEDS ORDERED: Bupivacaine 0.25% 10 ML SDV ONE (05:55)
[2023-05-13] MEDS ORDERED: Lidocaine 1% 5 ML VIAL ONE (06:27)
[2023-05-13] MEDS ORDERED: Propofol 200 MG/20 ML SDV ONE ×2 (06:27→07:04)
[2023-05-13] MEDS ORDERED: fentaNYL 100 MCG/2 ML SDV ONE (06:27)
[2023-05-13] MEDS ORDERED: ceFAZolin 2 GM Vial ONE (06:28)
[2023-05-13] MEDS ORDERED: Ondansetron 4 MG/2 ML SDV ONE (06:29)
[2023-05-13] MEDS ORDERED: Midazolam 1 MG/ML 2 ML SDV ONE (06:40)
[2023-05-13] MEDS ORDERED: Ketorolac 30 MG/ML SDV ONE (07:25)
[2023-05-13 07:57] VITALS: PULSE 56
[2023-05-13] MEDS ORDERED: Acetaminophen/HYDROcodone 325-5 MG Tab PO SCH (08:21)
[2023-05-13 08:36] VITALS: BP 118/94
== END 2023-05-13 09:18 | disposition home or self-care (01) ==
LOC: JD.SDS 05:50
PROVIDERS: ATTEND Orthopaedic Surgery
DX: T84.092A Other mechanical complication of internal right knee prosthesis, initial encounter (principal); Z79.899 Other long term (current) drug therapy; Z98.890 Other specified postprocedural states; Y82.9 Unspecified medical devices associated with adverse incidents
CPT/HCPCS: 20680; 76000; 81025; A9270; J0690; J1885; J2250; J2405; J2704; J3010; J3490; J7120; 01392